=== PATIENT | female | born 1950 ===

== ENCOUNTER 2016-12-09 15:38 | Emergency (ER) | payer SELFPAY ==
[2016-12-09 15:49] VITALS: RESP 20
--- NOTE | 2016-12-09 17:05 | C.PDOC ---
History Of Present Illness The patient is a 66yo female, presents to the ED for evaluation of left hand pain, present for the past month after she tripped and fell. Pt reports she landed on her hand during the fall but did not follow up. Pt states she presents today because the pain to her left 5th digit is worsening and she is unable to bend it. She currently offers no additional medical complaints. Time Seen by Provider: 12/09/16 15:58 Chief Complaint (Nursing): Upper Extremity Problem/Injury History Per: Patient History/Exam Limitations: no limitations Onset/Duration Of Symptoms: Persistent (1 month) Current Symptoms Are (Timing): Worse Quality: "Pain" Exacerbating Factor(s): Strenuous Use Of Affected Area, Movement Past Medical History Reviewed: Historical Data, Nursing Documentation, Vital Signs Vital Signs: Last Vital Signs Temp 97.6 F 12/09/16 17:08 Pulse 68 12/09/16 17:08 Resp 20 12/09/16 17:08 BP 106/56 L 12/09/16 17:08 Pulse Ox 96 12/09/16 17:08 - Medical History PMH: No Chronic Diseases Surgical History: No Surg Hx Family History: States: No Known Family Hx - Social History Hx Alcohol Use: No Hx Substance Use: No - Immunization History Hx Tetanus Toxoid Vaccination: No Hx Influenza Vaccination: No Hx Pneumococcal Vaccination: No Review Of Systems Musculoskeletal: Positive for: Hand Pain (left 5th digit) Physical Exam - Physical Exam Appears: Well, Non-toxic, No Acute Distress Skin: Normal Color Cardiovascular: Rhythm Regular Respiratory: Normal Breath Sounds Extremity: Normal ROM (normla ROM at wrist, decreased ROM at left 5th digit due to pain), Tenderness (tenderness to left 5th digit in middle and proximal phalanx, swelling noted as well. Bruising noted to left 5th digit.), No Deformity ED Course And Treatment O2 Sat by Pulse Oximetry: 99 (RA) Pulse Ox Interpretation: Normal Medical Decision Making Medical Decision Making: Time: 1550 Impression: Left 5th digit injury Plan: -- XR Left hand XR reviewed, showed healing fracture. Pt given a splint and instructed to follow up with hand specialist. Disposition Counseled Patient/Family Regarding: Studies Performed, Diagnosis, Need For Followup - Disposition Referrals: Geovanny Wang MD [Staff Provider] - Terry Garcia III, MD [Staff Provider] - Disposition: HOME/ ROUTINE Disposition Time: 17:03 Condition: STABLE Additional Instructions: Cadence un seguimiento con el Dr. Wang o con el Dr. Garcia para herminia evaluaci n ms profunda de ferro mano. Use frula en el dedo para mayor comodidad. Tylenol para el dolor si es necesario. Prescriptions: Acetaminophen [Tylenol 325mg tab] 650 mg PO Q6 #50 tab Instructions: Finger Fracture (ED) Forms: Gen Discharge Inst Moldovan, Mape (Moldovan) Print Language: SAMI - Clinical Impression Clinical Impression: Fracture of finger, left, closed - Scribe Statement The provider has reviewed the documentation as recorded by the Scribe Nereyda Squires Attestation: All medical record entries made by the Scribe were at my direction and personally dictated by me. I have reviewed the chart and agree that the record accurately reflects my personal performance of the history, physical exam, medical decision making, and the department course for this patient. I have also personally directed, reviewed, and agree with the discharge instructions and disposition.
[2016-12-09 17:08] VITALS: BP 106/56; PULSE 68; TEMP 97.6
[2016-12-09 17:14] VITALS: O2SAT 99
--- NOTE | 2016-12-10 10:42 | RAD ---
PROCEDURE: Left Hand Radiographs. HISTORY: pain to 4th and 5th fingers COMPARISON: None. FINDINGS: BONES: There is acute fracture at the distal portion of the proximal phalanx 5th finger. 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 SOFT TISSUES: Normal. OTHER FINDINGS: None. IMPRESSION: Acute fracture at the distal portion of the proximal phalanx 5th finger.
== END 2016-12-09 17:08 | disposition home or self-care (01) ==
LOC: C.ER 15:38
DX: S62.637A Displaced fracture of distal phalanx of left little finger, initial encounter for closed fracture (principal); W01.0XXA Fall on same level from slipping, tripping and stumbling without subsequent striking against object, initial encounter